=== PATIENT | female | born 1940 | race Caucasian/White ===

== ENCOUNTER 2023-07-29 15:06 | Observation (INO) | payer MEDICARE ==
[2023-07-29] MEDS ORDERED: SODIUM CHLORIDE 0.9% 1,000 ML IV STA (17:03)
--- NOTE | 2023-07-29 17:03 | ED ---
Nausea/Vomiting/Diarrhea HPI - General Chief complaint: Nausea/Vomiting/Diarrhea Stated complaint: COVID Symptoms,Dehydration Time Seen by Provider: 07/29/23 15:25 Source: patient, RN notes reviewed, old records reviewed Mode of arrival: EMS Limitations: no limitations - History of Present Illness Initial comments: This is a 82-year-old female to the emergency department for evaluation. Patient is a presents today for evaluation of overall weakness not feeling well with coronavirus exposure, patient has been increasingly weak for a few days now without shortness of breath. Patient was again exposed to coronavirus. Family states he 1 over the house today and she was not doing her normal activities of daily living wasn't getting up wasn't taking care of herself. Patient does live alone MD complaint: nausea, other (Weakness) -: days(s) Location: diffuse Radiation: none Severity: moderate Severity scale (1-10): 4 Consistency: constant Improves with: none Worsens with: none Context: sick contacts Associated Symptoms: denies other symptoms - Related Data Home Medications Medication Instructions Recorded Confirmed Albuterol Inhaler [Ventolin Hfa 2 puff INHALATION RT-QID PRN 07/29/23 07/29/23 Inhaler] Albuterol Nebulized [Ventolin 2.5 mg INHALATION RT-QID PRN 07/29/23 07/29/23 Nebulized] Aspirin EC [Ecotrin Low Dose] 81 mg PO DAILY 07/29/23 07/29/23 Clopidogrel [Plavix] 75 mg PO DAILY 07/29/23 07/29/23 Cranberry 4,200 Mg 8,400 mg PO DAILY 07/29/23 07/29/23 Escitalopram [Lexapro] 20 mg PO DAILY 07/29/23 07/29/23 Metoprolol Tartrate [Lopressor] 12.5 mg PO BID 07/29/23 07/29/23 Potassium Chloride ER [K-Dur 20] 40 meq PO DAILY 07/29/23 07/29/23 Simvastatin [Zocor] 40 mg PO HS 07/29/23 07/29/23 Sodium Chloride Tab 1 gm PO TID 07/29/23 07/29/23 Umeclidinium Brm/Vilanterol Tr 1 puff INHALATION RT-DAILY 07/29/23 07/29/23 [Anoro Ellipta 62.5-25 Mcg INH] Previous Rx's Medication Instructions Recorded Ascorbic Acid [Vitamin C] 250 mg PO DAILY #30 tab 07/30/23 Cholecalciferol [Vitamin D3 (25 50 mcg PO DAILY #30 tab 07/30/23 Mcg = 1000 Iu)] Famotidine [Pepcid] 20 mg PO DAILY 30 Days #30 tablet 07/30/23 Magnesium Oxide [Mag-Ox] 400 mg PO DAILY 15 Days #15 tab 07/30/23 Ondansetron Odt [Zofran Odt] 4 mg PO Q8HR PRN #20 tab 07/30/23 Zinc Sulfate [Orazinc] 220 mg PO DAILY #15 cap 07/30/23 Allergies Allergy/AdvReac Type Severity Reaction Status Date / Time Penicillins AdvReac Unknown Verified 07/29/23 19:13 Review of Systems ROS Statement: Those systems with pertinent positive or pertinent negative responses have been documented in the HPI. ROS Other: All systems not noted in ROS Statement are negative. Past Medical History Past Medical History: Chest Pain / Angina, COPD Additional Past Medical History / Comment(s): Dementia, History of Any Multi-Drug Resistant Organisms: None Reported Past Surgical History: Heart Catheterization With Stent Additional Past Surgical History / Comment(s): 1 stent 2020 Past Psychological History: Anxiety, Depression Smoking Status: Former smoker Past Alcohol Use History: Occasional Past Drug Use History: None Reported General Exam Limitations: no limitations General appearance: alert, in no apparent distress, anxious Head exam: Present: atraumatic, normocephalic, normal inspection Eye exam: Present: normal appearance, PERRL, EOMI. Absent: scleral icterus, conjunctival injection, periorbital swelling ENT exam: Present: normal exam, mucous membranes moist Neck exam: Present: normal inspection. Absent: tenderness, meningismus, lymphadenopathy Respiratory exam: Present: normal lung sounds bilaterally. Absent: respiratory distress, wheezes, rales, rhonchi, stridor Cardiovascular Exam: Present: regular rate, normal rhythm, normal heart sounds. Absent: systolic murmur, diastolic murmur, rubs, gallop, clicks GI/Abdominal exam: Present: soft, normal bowel sounds. Absent: distended, tenderness, guarding, rebound, rigid Extremities exam: Present: normal inspection, full ROM, normal capillary refill. Absent: tenderness, pedal edema, joint swelling, calf tenderness Back exam: Present: normal inspection Neurological exam: Present: alert, oriented X3, CN II-XII intact Psychiatric exam: Present: normal affect, normal mood Skin exam: Present: warm, dry, intact, normal color. Absent: rash Course Vital Signs 07/29/23 07/29/23 07/29/23 15:10 21:41 22:24 Temperature 97.7 F 97.3 F L 97.8 F Pulse Rate 79 85 Pulse Rate [ 82 Pulse Oximetery ] Respiratory 18 20 18 Rate Blood Pressure 158/76 132/75 Blood Pressure 149/70 [Right Arm] O2 Sat by Pulse 96 96 95 Oximetry 07/30/23 07/30/23 01:14 08:30 Temperature 97.6 F 97.8 F Pulse Rate Pulse Rate [ 79 82 Pulse Oximetery ] Respiratory 18 16 Rate Blood Pressure Blood Pressure 145/66 134/78 [Right Arm] O2 Sat by Pulse 96 95 Oximetry - Reevaluation(s) Reevaluation #1: 07/29/23 17:42 Medical record is reviewed Reevaluation #2: 07/29/23 20:35 Patient has no improvement here in the ER not comfortable with discharge Reevaluation #3: 07/29/23 20:36 Patient informed of results questions answered Reevaluation #4: 07/29/23 17:42 Was pt. sent in by a medical professional or institution (STEFFANIE Smith, FINAN[employer] RECRUITER, urgent care, hospital, or detention...) When possible be specific @ -no Did you speak to anyone other than the patient for history (EMS, parent, family, police, friend...)? What history was obtained from this source @ -no Did you review nursing and triage notes (agree or disagree)? Why? @ -agree Are old charts reviewed (outside hosp., previous admission, EMS record, old EKG, old radiological studies, urgent care reports/EKG's, detention records)? Report findings @ -yes Differential Diagnosis (chest pain, altered mental status, abdominal pain women, abdominal pain men, vaginal bleeding, weakness, fever, dyspnea, syncope, headache, dizziness, GI bleed, back pain, seizure, CVA, palpatations, mental health, musculoskeletal)? @ -prior EKG interpreted by me (3pts min.). @ -yes X-rays interpreted by me (1pt min.). @ -yes CT interpreted by me (1pt min.). @ -no U/S interpreted by me (1pt. min.). @ -no What testing was considered but not performed or refused? (CT, X-rays, U/S, labs)? Why? @ -none What meds were considered but not given or refused? Why? @ -none Did you discuss the management of the patient with other professionals (professionals i.e. DrTeri, PA, FINANCIAL RECRUITER, lab, RT, psych nurse, social scientist, social media designer, teacher, motorcycle police officer, case management social worker)? Give summary @ -no Was smoking cessation discussed for >3mins.? @ -no Was critical care preformed (if so, how long)? @ -no Were there social determinants of health that impacted care today? How? (Home lessness, low income, unemployed, alcoholism, drug addiction, transportation, low edu. Level, literacy, decrease access to med. care, shelter, rehab)? @ -none Was there de-escalation of care discussed even if they declined (Discuss DNR or withdrawal of care, Hospice)? DNR status @ -no What co-morbidities impacted this encounter? (DM, HTN, Smoking, COPD, CAD, Cancer, CVA, ARF, Chemo, Hep., AIDS, mental health diagnosis, sleep apnea, morbid obesity)? @ -none Was patient admitted / discharged? Hospital course, mention meds given and route, prescriptions, significant lab abnormalities, going to OR and other pertinent info. @ - 82 female to the emergency department for evaluation of positive cor onavirus and coronavirus exposure prior to arrival patient was feeling weak not participating in activities daily. Patient will admit for supportive care, no significant rust for a stress or acute distress in general. Admitted Undiagnosed new problem with uncertain prognosis? @ -no Drug Therapy requiring intensive monitoring for toxicity (Heparin, Nitro, Insulin, Cardizem)? @ -no Were any procedures done? @ -no Diagnosis/symptom? @ -Coronavirus, Dizziness weakness stability Acute, or Chronic, or Acute on Chronic? @ -Acute Uncomplicated (without systemic symptoms) or Complicated (systemic symptoms)? @ -Complicated Side effects of treatment? @ -no Exacerbation, Progression, or Severe Exacerbation? @ -exacerbation Poses a threat to life or bodily function? How? (Chest pain, [place], UT, pneumonia, PE, COPD, DKA, ARF, appy, cholecystitis, CVA, Diverticulitis, Homicidal, Suicidal, threat to staff... and all critical care pts) @ -yes with extremes of age Reevaluation #5: 07/29/23 20:36 Differential Weakness: Hypoglycemia, shock, sepsis, hyponatremia, anemia, infection, UT, ETOH, adverse medicine reaction, overdose, stroke, this is not meant to be an all-inclusive list. - Consultations Consultation #1: Spoke with [facility] were agrees to admit this patient Medical Decision Making - Medical Decision Making 82 female to the emergency department for evaluation of positive coronavirus and coronavirus exposure prior to arrival patient was feeling weak not participating in activities daily. Patient will admit for supportive care, no significant rust for a stress or acute distress in general. - Lab Data Result diagrams: 07/30/23 06:50 07/30/23 06:50 Lab Results 07/29/23 07/29/23 07/29/23 Range/Units 06:17 16:30 17:45 WBC 7.3 (3.8-10.6) k/uL RBC 4.28 (3.80-5.40) m/uL Hgb 13.5 (11.4-16.0) gm/dL Hct 40.1 (34.0-46.0) % MCV 93.7 (80.0-100.0) fL MCH 31.5 (25.0-35.0) pg MCHC 33.6 (31.0-37.0) g/dL RDW 12.7 (11.5-15.5) % Plt Count 290 (150-450) k/uL MPV 6.9 Neutrophils % 72 % Lymphocytes % 20 % Monocytes % 7 % Eosinophils % 1 % Basophils % 0 % Neutrophils # 5.2 (1.3-7.7) k/uL Lymphocytes # 1.5 (1.0-4.8) k/uL Monocytes # 0.5 (0-1.0) k/uL Eosinophils # 0.1 (0-0.7) k/uL Basophils # 0.0 (0-0.2) k/uL PT (9.0-12.0) sec INR (<1.2) APTT (22.0-30.0) sec Sodium (137-145) mmol/L Potassium (3.5-5.1) mmol/L Chloride (98-107) mmol/L Carbon Dioxide (22-30) mmol/L Anion Gap mmol/L BUN (7-17) mg/dL Creatinine (0.52-1.04) mg/dL Est GFR (CKD-EPI)AfAm (>60 ml/min/1.73 sqM) Est GFR (CKD-EPI)NonAf (>60 ml/min/1.73 sqM) Glucose (74-99) mg/dL Calcium (8.4-10.2) mg/dL Phosphorus (2.5-4.5) mg/dL Magnesium (1.6-2.3) mg/dL Total Bilirubin (0.2-1.3) mg/dL AST (14-36) U/L ALT (4-34) U/L Alkaline Phosphatase (38-126) U/L Troponin I (0.000-0.034) ng/mL Total Protein (6.3-8.2) g/dL Albumin (3.5-5.0) g/dL TSH (0.465-4.680) mIU/L Urine Color Light Yellow Urine Appearance Clear (Clear) Urine pH 7.5 (5.0-8.0) Ur Specific [place] 1.008 (1.001-1.035) Urine Protein Negative (Negative) Urine Glucose (UA) Negative (Negative) Urine Ketones Negative (Negative) Urine Blood Negative (Negative) Urine Nitrite Negative (Negative) Urine Bilirubin Negative (Negative) Urine Urobilinogen <2.0 (<2.0) mg/dL Ur Leukocyte Esterase Negative (Negative) Influenza Type A (PCR) Not Detected (Not Detectd) Influenza Type B (PCR) Not Detected (Not Detectd) RSV (PCR) Not Detected (Not Detectd) SARS-CoV-2 (PCR) Detected A (Not Detectd) 07/29/23 07/29/23 07/29/23 Range/Units 17:45 17:45 17:45 WBC (3.8-10.6) k/uL RBC (3.80-5.40) m/uL Hgb (11.4-16.0) gm/dL Hct (34.0-46.0) % MCV (80.0-100.0) fL MCH (25.0-35.0) pg MCHC (31.0-37.0) g/dL RDW (11.5-15.5) % Plt Count (150-450) k/uL MPV Neutrophils % % Lymphocytes % % Monocytes % % Eosinophils % % Basophils % % Neutrophils # (1.3-7.7) k/uL Lymphocytes # (1.0-4.8) k/uL Monocytes # (0-1.0) k/uL Eosinophils # (0-0.7) k/uL Basophils # (0-0.2) k/uL PT 10.5 (9.0-12.0) sec INR 1.0 (<1.2) APTT 23.5 (22.0-30.0) sec Sodium 132 L (137-145) mmol/L Potassium 4.0 (3.5-5.1) mmol/L Chloride 100 (98-107) mmol/L Carbon Dioxide 23 (22-30) mmol/L Anion Gap 9 mmol/L BUN 9 (7-17) mg/dL Creatinine 0.37 L (0.52-1.04) mg/dL Est GFR (CKD-EPI)AfAm >90 (>60 ml/min/1.73 sqM) Est GFR (CKD-EPI)NonAf >90 (>60 ml/min/1.73 sqM) Glucose 108 H (74-99) mg/dL Calcium 8.5 (8.4-10.2) mg/dL Phosphorus 4.0 (2.5-4.5) mg/dL Magnesium 1.6 (1.6-2.3) mg/dL Total Bilirubin 1.0 (0.2-1.3) mg/dL AST 19 (14-36) U/L ALT 11 (4-34) U/L Alkaline Phosphatase 62 (38-126) U/L Troponin I <0.012 (0.000-0.034) ng/mL Total Protein 6.4 (6.3-8.2) g/dL Albumin 3.4 L (3.5-5.0) g/dL TSH 1.000 (0.465-4.680) mIU/L Urine Color Urine Appearance (Clear) Urine pH (5.0-8.0) Ur Specific [place] (1.001-1.035) Urine Protein (Negative) Urine Glucose (UA) (Negative) Urine Ketones (Negative) Urine Blood (Negative) Urine Nitrite (Negative) Urine Bilirubin (Negative) Urine Urobilinogen (<2.0) mg/dL Ur Leukocyte Esterase (Negative) Influenza Type A (PCR) (Not Detectd) Influenza Type B (PCR) (Not Detectd) RSV (PCR) (Not Detectd) SARS-CoV-2 (PCR) (Not Detectd) - EKG Data -: EKG Interpreted by Me (EKG sinus 78 IN 154 QRS 78 QTc 414) - Radiology Data Radiology results: report reviewed (Chest x-rays negative for acute disease), image reviewed Disposition Clinical Impression: Dehydration, Weakness, Coronavirus infection Disposition: ADMITTED IP TO THIS HOSP Condition: Fair Is patient prescribed a controlled substance at d/c from ED?: No Time of Disposition: 18:30
[2023-07-29 17:55] LABS: Basophils % (A) 0 %; Eosinophils # (A) 0.1 k/uL (0-0.7); Eosinophils % (A) 1 %; HCT 40.1 % (34.0-46.0); HGB 13.5 gm/dL (11.4-16.0); Lymphocytes # (A) 1.5 k/uL (1.0-4.8); Lymphocytes % (A) 20 %; MCH 31.5 pg (25.0-35.0); MCHC 33.6 g/dL (31.0-37.0); MCV 93.7 fL (80.0-100.0); Mean Platelet Volume 6.9; Monocytes # (A) 0.5 k/uL (0-1.0); Monocytes % (A) 7 %; Neutrophils # (A) 5.2 k/uL (1.3-7.7); Neutrophils % (A) 72 %; Platelet Count 290 k/uL (150-450); RBC 4.28 m/uL (3.80-5.40); RDW 12.7 % (11.5-15.5); WBC 7.3 k/uL (3.8-10.6)
--- NOTE | 2023-07-29 17:59 | XR ---
EXAMINATION TYPE: XR chest 1V portable DATE OF EXAM: 07/29/2023 HISTORY: Shortness of breath. COMPARISON: None. TECHNIQUE: Single view of the chest is submitted. FINDINGS: Demonstrated are scattered senescent parenchymal change. There is no evidence for focal infiltrate. The heart is stable. Hilar and mediastinal structures are within normal limits. Degenerative changes are seen of the dorsal spine. IMPRESSION: 1. Chronic changes without evidence for acute pulmonary disease.
[2023-07-29 18:15] LABS: ALT 11 U/L (4-34); AST 19 U/L (14-36); African American GFR (CKD) >90 (>60 ml/min/1.73 sqM); Albumin 3.4 g/dL (3.5-5.0); Alkaline Phosphatase 62 U/L (38-126); Anion Gap 9 mmol/L; Blood Urea Nitrogen 9 mg/dL (7-17); Calcium 8.5 mg/dL (8.4-10.2); Carbon Dioxide 23 mmol/L (22-30); Chloride 100 mmol/L (98-107); Glucose 108 mg/dL (74-99); Magnesium 1.6 mg/dL (1.6-2.3); Non-African American GFR(CKD) >90 (>60 ml/min/1.73 sqM); Sodium 132 mmol/L (137-145); Total Protein 6.4 g/dL (6.3-8.2)
[2023-07-29] MEDS ORDERED: ONDANSETRON 4 MG/2 ML VIAL IVP PRN (18:31)
[2023-07-29] MEDS ORDERED: NALOXONE 0.4 MG/ML 1 ML VIAL IV PRN (18:31)
[2023-07-29 19:01] LABS: Prothrombin Time 10.5 sec (9.0-12.0)
[2023-07-29 19:02] LABS: Partial Thromboplastin Time 23.5 sec (22.0-30.0)
[2023-07-29] MEDS: SODIUM CHLORIDE 0.9% 1,000 ML IV SCH (19:49)
[2023-07-29 20:18] LABS: Appearance,Urine Clear (Clear); Bilirubin,Urine Negative (Negative); Blood,Urine Negative (Negative); Glucose,Urine (UA) Negative (Negative); Ketones,Urine Negative (Negative); Leukocyte Esterase,Urine Negative (Negative); Nitrite,Urine Negative (Negative); PH, Urine 7.5 (5.0-8.0); Protein,Urine Negative (Negative); Specific Gravity,Urine 1.008 (1.001-1.035); Urobilinogen,Urine <2.0 mg/dL (<2.0)
[2023-07-29 21:05] LABS: Color,Urine Light Yellow
[2023-07-30] MEDS: SODIUM CHLORIDE 0.9% 1,000 ML IV SCH ×2 (03:52→11:13)
[2023-07-30 08:48] VITALS: BP 134/78; PULSE 82; RESP 16; TEMP 97.8
[2023-07-30] MEDS ORDERED: ACETAMINOPHEN TAB 325 MG TAB PO PRN (10:10)
[2023-07-30] MEDS ORDERED: ALBUTEROL NEBULIZED 2.5 MG/3 ML INHALATION PRN (10:12)
[2023-07-30] MEDS ORDERED: ASCORBIC ACID 500 MG TAB PO SCH (10:15)
[2023-07-30] MEDS ORDERED: PANTOPRAZOLE 40 MG TABLET PO SCH (10:15)
[2023-07-30] MEDS ORDERED: ZINC SULFATE 220 MG CAP PO SCH (10:15)
[2023-07-30] MEDS ORDERED: CHOLECALCIFEROL 25 MCG (1000 IU) TABLET PO SCH (10:15)
[2023-07-30] MEDS ORDERED: NON FORMULARY DRUG (Albuterol Inhaler 90 MCG Puff) INHALATION PRN (11:37)
[2023-07-30] MEDS ORDERED: ALBUTEROL NEBULIZED 2.5 MG/3 ML INHALATION SCH (12:00)
[2023-07-30] MEDS ORDERED: ALBUTEROL HFA INHALER INHALATION PRN (12:05)
[2023-07-30 12:47] LABS: Blood Urea Nitrogen 6.6 mg/dL (9.0-27.0); Glucose 90 mg/dL (70-110)
[2023-07-30 12:48] LABS: ALT 9 U/L (8-44); AST 16 U/L (13-35); Albumin 3.6 d/dL (3.8-4.9); Albumin/Globulin Ratio 1.57 Ratio (1.60-3.17); Alkaline Phosphatase 57 U/L (41-126); Calcium 8.3 mg/dL (8.7-10.3); Carbon Dioxide 20.7 mmol/L (21.6-31.8); Chloride 104 mmol/L (96-109); Globulin 2.3 d/dL (1.6-3.3); Potassium 3.6 mmol/L (3.5-5.5); Sodium 137 mmol/L (135-145); Total Bilirubin 0.7 mg/dL (0.3-1.2); Total Protein 5.9 d/dL (6.2-8.2)
[2023-07-30 12:49] LABS: Basophils # (A) 0.03 X 10*3/uL (0.00-0.10); Basophils % (A) 0.4 %; Eosinophils # (A) 0.17 X 10*3/uL (0.04-0.35); Eosinophils % (A) 2.1 %; HCT 39.9 % (37.2-46.3); HGB 12.8 d/dL (12.0-15.0); Lymphocytes # (A) 1.82 X 10*3/uL (0.90-5.00); Lymphocytes % (A) 22.3 %; MCHC 32.1 d/dL (32.0-37.0); MCV 96.6 FL (80.0-97.0); Mean Platelet Volume 8.9 FL (9.5-12.2); Monocytes # (A) 1.15 X 10*3/uL (0.20-1.00); Monocytes % (A) 14.1 %; NRBC Per 100 WBC 0 X 10*3/uL (0.00-0.01); Neutrophils # (A) 4.95 X 10*3/uL (1.80-7.70); Neutrophils % (A) 60.6 %; Platelet Count 231 X 10*3/uL (140-440); RBC 4.13 X 10*6/uL (4.10-5.20); RDW 12.7 % (11.5-14.5); WBC 8.16 X 10*3/uL (4.50-10.00)
[2023-07-30] MEDS ORDERED: POTASSIUM CHLORIDE ER 20 MEQ TAB.ER PO STA (13:44)
[2023-07-30] MEDS ORDERED: MAGNESIUM OXIDE 400 MG TAB PO STA (13:44)
--- NOTE | 2023-07-30 13:54 | P.HPIM ---
History of Present Illness H&P Date: 07/30/23 This is an 82-year-old female with medical history of COPD, former smoker, prior cardiac stenting with PCI back in 2020. Patient presents to the hospital with nausea and diarrhea was concern for Covid exposure and has progressive weakness. Patient lives alone and was recommended for evaluation by family. Chest x-ray was negative for acute findings no focal infiltrate. Has chronic changes. EKG shows Sinus rhythm with occasional PVCs and nonspecific ST and T wave abnormalities with a heart rate of 78. No prior EKG for comparison. Was found to be COVID positive by PCR. Influenza and RSV are negative. Urinalysis is negative. Patient is slightly hyponatremic with a sodium of 132 consistent with poor oral intake at home and increased nausea vomiting diarrhea. Medicine and observation. She is currently maintained on room air with oxygen saturation 95% will be offered supportive care for acute Covid infection. There does not appear to be any evidence for sepsis or pneumonia. Patient was hydrated with normal saline overnight and pending repeat labs patient should be able to return home today with supportive care. All symptoms have resolved. patient tolerated breakfast. REVIEW OF SYSTEMS: CONSTITUTIONAL: No fever, no malaise, no fatigue. HEENT: No recent visual problems or hearing problems. Denied any sore throat. CARDIOVASCULAR: No chest pain, orthopnea, PND, no palpitations, no syncope. PULMONARY: No shortness of breath, no cough, no hemoptysis. GASTROINTESTINAL: No diarrhea, no nausea, no vomiting, no abdominal pain. NEUROLOGICAL: No headaches, no weakness, no numbness. HEMATOLOGICAL: Denies any bleeding or petechiae. GENITOURINARY: Denies any burning micturition, frequency, or urgency. MUSCULOSKELETAL/RHEUMATOLOGICAL: Denies any joint pain, swelling, or any muscle pain. ENDOCRINE: Denies any polyuria or polydipsia. The rest of the 14-point review of systems is negative. PHYSICAL EXAMINATION: GENERAL: The patient is alert and oriented x3, not in any acute distress. Well developed, well nourished. HEENT: Pupils are round and equally reacting to light. EOMI. No scleral icterus. No conjunctival pallor. Normocephalic, atraumatic. No pharyngeal erythema. No thyromegaly. CARDIOVASCULAR: S1 and S2 present. No murmurs, rubs, or gallops. PULMONARY: Chest is clear to auscultation, no wheezing or crackles. ABDOMEN: Soft, nontender, nondistended, normoactive bowel sounds. No palpable organomegaly. MUSCULOSKELETAL: No joint swelling or deformity. EXTREMITIES: No cyanosis, clubbing, or pedal edema. NEUROLOGICAL: Gross neurological examination did not reveal any focal deficits. SKIN: No rashes. Assessment Nausea vomiting and diarrhea due to acute viral infection Acute covid infection without evidence for sepsis or pneumonia Hyponatremia hypovolemic improved with IV fluids History of COPD with no acute exacerbation Anxiety/Depression Former Smoker Hx coronary artery disease with prior PCI GI prophylaxis DVT prophylaxis Full Code Plan IV hydration and supportive for the acute covid infection. Tylenol for any fever, pt has remained afebrile Continue same home medications Patient started on vitamin support with zinc, vitamin C, vitamin D PT/OT for discharge planning home with home care pt should be able to DC home today If patient requires rehab social work will be consulted for discharge planning The impression and plan of care has been dictated by Nurse Lalo Rg as directed. Dr. Ryan MD I have performed a history and physical examination and medical decision making of this patient, discussed the same with the dictator, and agree with the dict ators assessment and plan as written, documented as a scribe. Based on total visit time, I have performed more than 50% of this visit. Past Medical History Past Medical History: Chest Pain / Angina, COPD Additional Past Medical History / Comment(s): Dementia, History of Any Multi-Drug Resistant Organisms: None Reported Past Surgical History: Heart Catheterization With Stent Additional Past Surgical History / Comment(s): 1 stent 2020 Past Anesthesia/Blood Transfusion Reactions: No Reported Reaction Date of Last Stent Placement:: 2020 Past Psychological History: Anxiety, Depression Smoking Status: Former smoker Past Alcohol Use History: Occasional Past Drug Use History: None Reported Medications and Allergies Home Medications Medication Instructions Recorded Confirmed Type Albuterol Inhaler [Ventolin Hfa 2 puff INHALATION RT-QID PRN 07/29/23 07/29/23 History Inhaler] Albuterol Nebulized [Ventolin 2.5 mg INHALATION RT-QID PRN 07/29/23 07/29/23 History Nebulized] Aspirin EC [Ecotrin Low Dose] 81 mg PO DAILY 07/29/23 07/29/23 History Clopidogrel [Plavix] 75 mg PO DAILY 07/29/23 07/29/23 History Cranberry 4,200 Mg 8,400 mg PO DAILY 07/29/23 07/29/23 History Escitalopram [Lexapro] 20 mg PO DAILY 07/29/23 07/29/23 History Metoprolol Tartrate [Lopressor] 12.5 mg PO BID 07/29/23 07/29/23 History Potassium Chloride ER [K-Dur 20] 40 meq PO DAILY 07/29/23 07/29/23 History Simvastatin [Zocor] 40 mg PO HS 07/29/23 07/29/23 History Sodium Chloride Tab 1 gm PO TID 07/29/23 07/29/23 History Umeclidinium Brm/Vilanterol Tr 1 puff INHALATION RT-DAILY 07/29/23 07/29/23 History [Anoro Ellipta 62.5-25 Mcg INH] Allergies Allergy/AdvReac Type Severity Reaction Status Date / Time Penicillins AdvReac Unknown Verified 07/29/23 19:13 Physical Exam Vitals: Vital Signs Temp Pulse Pulse Resp BP BP Pulse Ox 07/30/23 08:30 97.8 F 82 16 134/78 95 07/30/23 01:14 97.6 F 79 18 145/66 96 07/29/23 22:24 97.8 F 82 18 149/70 95 07/29/23 21:41 97.3 F L 85 20 132/75 96 07/29/23 15:10 97.7 F 79 18 158/76 96 Intake and Output 07/29/23 07/30/23 07/30/23 22:59 06:59 14:59 Output Total 550 Balance -550 Output: Urine 550 Other: Voiding Method Diaper External Catheter Weight 110 kg Results CBC & Chem 7: 07/30/23 06:50 07/30/23 06:50 Labs: Abnormal Lab Results - Last 24 Hours (Table) 07/29/23 07/29/23 Range/Units 16:30 17:45 Sodium 132 L (137-145) mmol/L Creatinine 0.37 L (0.52-1.04) mg/dL Glucose 108 H (74-99) mg/dL Albumin 3.4 L (3.5-5.0) g/dL SARS-CoV-2 (PCR) Detected A (Not Detectd) Thrombosis Risk Factor Assmnt - Choose All That Apply Any of the Below Risk Factors Present?: Yes Each Factor Represents 1 point: Abnormal pulmonary function (COPD), Obesity (BMI >25) Other Risk Factors: Yes Each Risk Factor Represents 3 Points: Age 75 years or older Thrombosis Risk Factor Assessment Total Risk Factor Score: 5 Thrombosis Risk Factor Assessment Level: High Risk Assessment and Plan Time with Patient: Less than 30
[2023-07-30] MEDS ORDERED: ALBUTEROL HFA INHALER INHALATION SCH (16:00)
--- NOTE | 2023-07-30 16:22 | P.DS ---
Providers Date of admission: 07/29/23 18:32 Attending physician: Bradley Mejia Primary care physician: Yamil [place] Hospital Course: Final Diagnosis Nausea vomiting and diarrhea due to acute viral infection Acute covid infection without evidence for sepsis or pneumonia Hyponatremia hypovolemic improved with IV fluids History of COPD with no acute exacerbation Anxiety/Depression Former Smoker Hx coronary artery disease with prior PCI GI prophylaxis DVT prophylaxis Full Code Discharge disposition Patient is stable for discharge home with homecare services. Recommend to continue supportive care for the acute covid infection and patient encouraged to increase oral intake and can use oral protein supplementation like ensure for added dietary support. Patient is given antiemetics on discharge as well. Recommend to repeat labs in 2 to 3 days and to see PCP in 1 to 2 days on discharge. Hospital Course This is an 82-year-old female with medical history of COPD, former smoker, prior cardiac stenting with PCI back in 2020. Patient presents to the hospital with nausea and diarrhea was concern for Covid exposure and has progressive weakness. Patient lives alone and was recommended for evaluation by family. Chest x-ray was negative for acute findings no focal infiltrate. Has chronic changes. EKG shows Sinus rhythm with occasional PVCs and nonspecific ST and T wave abnormalities with a heart rate of 78. No prior EKG for comparison. Was found to be COVID positive by PCR. Influenza and RSV are negative. Urinalysis is negative. Patient is slightly hyponatremic with a sodium of 132 consistent with poor oral intake at home and increased nausea vomiting diarrhea. Medicine and observation. She is currently maintained on room air with oxygen saturation 95% will be offered supportive care for acute Covid infection. There does not ap pear to be any evidence for sepsis or pneumonia. Patient was hydrated with normal saline overnight and pending repeat labs patient should be able to return home today with supportive care. All symptoms have resolved. patient tolerated breakfast. Patient has been evaluated by physical therapy and cleared for DC home with homecare services. After hydration sodium level has improved up to 137. White blood cell count remains normal. Denying shortness of breath and no chest pain. Reports nausea vomiting and diarrhea have improved. Hemodynamically stable. Lungs are clear S1 S2 auscultated, abdomen is soft and nontender focal neurological exam is negative. Please see medication reconciliation for a list of current medication. Thank you for allowing us to participate in the care of this patient. The impression and plan of care has been dictated by Griselda Hall, Nurse Practitioner as directed. Dr. Ryan MD I have performed a history and physical examination and medical decision making of this patient, discussed the same with the dictator, and agree with the dictators assessment and plan as written, documented as a scribe. Based on total visit time, I have performed more than 50% of this visit. Patient Condition at Discharge: Fair Plan - Discharge Summary Discharge Rx Participant: Yes New Discharge Prescriptions: New Magnesium Oxide [Mag-Ox] 400 mg PO DAILY 15 Days #15 tab Zinc Sulfate [Orazinc] 220 mg PO DAILY #15 cap Ascorbic Acid [Vitamin C] 250 mg PO DAILY #30 tab Famotidine [Pepcid] 20 mg PO DAILY 30 Days #30 tablet Cholecalciferol [Vitamin D3 (25 Mcg = 1000 Iu)] 50 mcg PO DAILY #30 tab Ondansetron Odt [Zofran Odt] 4 mg PO Q8HR PRN #20 tab PRN Reason: Nausea Continue Simvastatin [Zocor] 40 mg PO HS Metoprolol Tartrate [Lopressor] 12.5 mg PO BID Escitalopram [Lexapro] 20 mg PO DAILY Albuterol Inhaler [Ventolin Hfa Inhaler] 2 puff INHALATION RT-QID PRN PRN Reason: Shortness Of Breath Sodium Chloride Tab 1 gm PO TID Potassium Chloride ER [K-Dur 20] 40 meq PO DAILY Aspirin EC [Ecotrin Low Dose] 81 mg PO DAILY Umeclidinium Brm/Vilanterol Tr [Anoro Ellipta 62.5-25 Mcg INH] 1 puff INHALATION RT-DAILY Clopidogrel [Plavix] 75 mg PO DAILY Albuterol Nebulized [Ventolin Nebulized] 2.5 mg INHALATION RT-QID PRN PRN Reason: Shortness Of Breath Cranberry 4,200 Mg 8,400 mg PO DAILY Discharge Medication List Albuterol Inhaler [Ventolin Hfa Inhaler] 2 puff INHALATION RT-QID PRN 07/29/23 [History] Albuterol Nebulized [Ventolin Nebulized] 2.5 mg INHALATION RT-QID PRN 07/29/23 [History] Aspirin EC [Ecotrin Low Dose] 81 mg PO DAILY 07/29/23 [History] Clopidogrel [Plavix] 75 mg PO DAILY 07/29/23 [History] Cranberry 4,200 Mg 8,400 mg PO DAILY 07/29/23 [History] Escitalopram [Lexapro] 20 mg PO DAILY 07/29/23 [History] Metoprolol Tartrate [Lopressor] 12.5 mg PO BID 07/29/23 [History] Potassium Chloride ER [K-Dur 20] 40 meq PO DAILY 07/29/23 [History] Simvastatin [Zocor] 40 mg PO HS 07/29/23 [History] Sodium Chloride Tab 1 gm PO TID 07/29/23 [History] Umeclidinium Brm/Vilanterol Tr [Anoro Ellipta 62.5-25 Mcg INH] 1 puff INHALATION RT-DAILY 07/29/23 [History] Ascorbic Acid [Vitamin C] 250 mg PO DAILY #30 tab 07/30/23 [Rx] Cholecalciferol [Vitamin D3 (25 Mcg = 1000 Iu)] 50 mcg PO DAILY #30 tab 07/30/23 [Rx] Famotidine [Pepcid] 20 mg PO DAILY 30 Days #30 tablet 07/30/23 [Rx] Magnesium Oxide [Mag-Ox] 400 mg PO DAILY 15 Days #15 tab 07/30/23 [Rx] Ondansetron Odt [Zofran Odt] 4 mg PO Q8HR PRN #20 tab 07/30/23 [Rx] Zinc Sulfate [Orazinc] 220 mg PO DAILY #15 cap 07/30/23 [Rx] Follow up Appointment(s)/Referral(s): Yamil Bob MD [Primary Care Provider] - 1-2 days [facility]idential [facility] [NON-STAFF] - 1 Week Ambulatory/Diagnostic Orders: Basic Metabolic Panel [LAB.AMB] Time Frame: 3 Days, Location: None Selected Activity/Diet/Wound Care/Special Instructions: Supportive care for the acute covid infection with tylenol for fever/pain Increase oral hydration and encourage oral water intake Diet as tolerated Patient is discharged on vitamin support with zinc, vitamin c, vitamin d daily Continue on same home inhalers Recommend to see family doctor in 1 to 2 days and to repeat BMP in 2 to 3 days Discharge Disposition: HOME WITH HOME HEALTH SERVICES
[2023-07-30] MEDS ORDERED: METOPROLOL TARTRATE 12.5 MG TAB PO SCH (21:00)
[2023-07-30] MEDS ORDERED: ATORVASTATIN 20 MG TAB PO SCH (21:00)
[2023-07-31] MEDS ORDERED: ESCITALOPRAM 20 MG TAB PO SCH (09:00)
[2023-07-31] MEDS ORDERED: ASPIRIN 81 MG PO SCH (09:00)
[2023-07-31] MEDS ORDERED: CLOPIDOGREL 75 MG TAB PO SCH (09:00)
== END 2023-07-30 17:17 | disposition home health service (06) ==
LOC: EC 15:06 → 6NMEDSUR 18:32
PROVIDERS: ADMIT Hospitalist; ATTEND Hospitalist
DX: R11.2 Nausea with vomiting, unspecified (principal); U07.1 COVID-19; E86.0 Dehydration; E87.1 Hypo-osmolality and hyponatremia; I25.10 Atherosclerotic heart disease of native coronary artery without angina pectoris; I49.3 Ventricular premature depolarization; J44.9 Chronic obstructive pulmonary disease, unspecified; F41.8 Other specified anxiety disorders; Z79.02 Long term (current) use of antithrombotics/antiplatelets; Z79.82 Long term (current) use of aspirin; Z79.899 Other long term (current) drug therapy; Z87.891 Personal history of nicotine dependence; Z95.5 Presence of coronary angioplasty implant and graft
CPT/HCPCS: 96360; 99285; 36415; 94640; 93005; 97162; 97166; 80053 ×2; 83735; 84100; 84443; 84484; 85025 ×2; 85610; 85730; 81003; 87636; 71045; G0378 ×2